=== PATIENT | male | born 1965 | race Caucasian/White ===

== ENCOUNTER 2021-01-06 18:14 | Emergency (ER) | payer OTHER ==
[~2021-01-06 18:14] MED LIST: BYSTOLIC10 MG PO; CRESTOR5 MG PO; DILTIAZEM 12HR60 MG PO; INDOCIN 50 MG C50 MG PO; OMEPRAZOLE40 MG PO; VENLAFAXINE H37.5 MG PO
[2021-01-06] MEDS ORDERED: PERCOCET 5/325 T1 EA PO (22:03)
== END 2021-01-06 22:20 | disposition home or self-care (01) ==
LOC: ER1 18:14
DX: S09.90XA Unspecified injury of head, initial encounter (principal); S30.810A Abrasion of lower back and pelvis, initial encounter; F17.210 Nicotine dependence, cigarettes, uncomplicated; Z88.8 Allergy status to other drugs, medicaments and biological substances; V86.59XA Driver of other special all-terrain or other off-road motor vehicle injured in nontraffic accident, initial encounter; Y92.410 Unspecified street and highway as the place of occurrence of the external cause
CPT/HCPCS: 70450; 71045; 72125; 72128; 72131; 72170; 99284